=== PATIENT | male | born 1955 | race Caucasian/White ===

== ENCOUNTER 2016-03-27 13:41 | Outpatient (CLI) | payer MEDICAID | END 2016-03-27 13:42 | disposition home or self-care (01) | DX: R25.2 Cramp and spasm (principal) ==

== ENCOUNTER 2016-04-02 10:18 | Emergency (ER) | payer MEDICAID ==
[2016-04-02] MEDS ORDERED: KETOROLAC 60 MG/2 ML VIAL IM STA (12:11)
[2016-04-02] MEDS ORDERED: KETOROLAC 60 MG/2 ML VIAL ONE (12:21)
== END 2016-04-02 12:47 | disposition home or self-care (01) ==
DX: S46.911A Strain of unspecified muscle, fascia and tendon at shoulder and upper arm level, right arm, initial encounter (principal); X58.XXXA Exposure to other specified factors, initial encounter; E11.65 Type 2 diabetes mellitus with hyperglycemia; I10 Essential (primary) hypertension; K21.9 Gastro-esophageal reflux disease without esophagitis; F17.200 Nicotine dependence, unspecified, uncomplicated; Z79.4 Long term (current) use of insulin

== ENCOUNTER 2016-05-10 13:45 | Outpatient (CLI) | payer MEDICAID | END 2016-05-10 13:46 | DX: R19.01 Right upper quadrant abdominal swelling, mass and lump (principal) ==

== ENCOUNTER 2016-05-11 18:51 | Outpatient (CLI) | payer MEDICAID | END 2016-05-11 18:52 | disposition home or self-care (01) | DX: K76.9 Liver disease, unspecified (principal) ==

== ENCOUNTER 2016-05-13 09:34 | Outpatient (CLI) | payer MEDICAID ==
[2016-05-13] MEDS ORDERED: IOPAMIDOL-300 100 ML VIAL IVP ONE (10:27)
== END 2016-05-13 09:35 | disposition home or self-care (01) ==
DX: C18.3 Malignant neoplasm of hepatic flexure (principal); R59.0 Localized enlarged lymph nodes
CPT/HCPCS: 71260; 74177; Q9967

== ENCOUNTER 2016-05-22 13:45 | Outpatient (CLI) | payer MEDICAID | END 2016-05-22 13:46 | disposition home or self-care (01) | DX: Z51.5 Encounter for palliative care (principal); G89.3 Neoplasm related pain (acute) (chronic); C22.9 Malignant neoplasm of liver, not specified as primary or secondary; K59.00 Constipation, unspecified; R63.0 Anorexia; E11.65 Type 2 diabetes mellitus with hyperglycemia; R53.83 Other fatigue; F41.9 Anxiety disorder, unspecified; F42.9 Obsessive-compulsive disorder, unspecified; I73.9 Peripheral vascular disease, unspecified; G47.9 Sleep disorder, unspecified; R19.7 Diarrhea, unspecified; Z79.891 Long term (current) use of opiate analgesic; Z79.899 Other long term (current) drug therapy; Z87.891 Personal history of nicotine dependence ==

== ENCOUNTER 2016-05-26 15:20 | Outpatient (CLI) | payer MEDICAID | END 2016-05-26 15:21 | disposition critical access hospital (66) | DX: R11.2 Nausea with vomiting, unspecified (principal) | CPT/HCPCS: A0425; A0429 ==

== ENCOUNTER 2016-05-26 15:35 | Observation (INO) | payer MEDICAID ==
[2016-05-26] MEDS ORDERED: ONDANSETRON 4 MG/2 ML VIAL IVP STA (16:03)
[2016-05-26] MEDS ORDERED: SODIUM CHLORIDE 0.9% 1,000 ML IV ONE (16:03)
[2016-05-26] MEDS ORDERED: HYDROmorphone 1 MG/ML SYRINGE IVP STA (16:44)
[2016-05-26] MEDS ORDERED: HYDROmorphone 1 MG/ML SYRINGE ONE (17:04)
[2016-05-26] MEDS ORDERED: ONDANSETRON 4 MG/2 ML VIAL ONE (17:04)
[2016-05-26] MEDS ORDERED: IOPAMIDOL-300 100 ML VIAL IVP ONE (18:03)
[2016-05-26] MEDS ORDERED: ONDANSETRON 4 MG/2 ML VIAL IVP PRN (21:31)
[2016-05-26] MEDS ORDERED: SODIUM CHLORIDE FLUSH 0.9% 10 ML SYRINGE IVP PRN (21:31)
[2016-05-26] MEDS ORDERED: PROCHLORPERAZINE 10 MG/2 ML VIAL IVP PRN (21:31)
[2016-05-26] MEDS ORDERED: ONDANSETRON ODT 4 MG TABLET TL PRN (21:31)
[2016-05-26] MEDS ORDERED: DICLOFENAC SODIUM 2 GM TP PRN (21:34)
[2016-05-26] MEDS: SODIUM CHLORIDE 0.9% 1,000 ML IV SCH (22:50)
[2016-05-26] MEDS: SODIUM CHLORIDE FLUSH 0.9% 10 ML SYRINGE IVP SCH (22:50)
[2016-05-26] MEDS: MORPHINE 2 MG/ML SYRINGE IVP PRN (22:50)
[2016-05-26] MEDS: PANTOPRAZOLE 40 MG VIAL IVP SCH (22:50)
[2016-05-27] MEDS: MORPHINE 2 MG/ML SYRINGE IVP PRN ×2 (01:17→05:20)
[2016-05-27] MEDS: SODIUM CHLORIDE FLUSH 0.9% 10 ML SYRINGE IVP SCH (06:26)
[2016-05-27] MEDS: PANTOPRAZOLE 40 MG VIAL IVP SCH (06:26)
[2016-05-27] MEDS ORDERED: INSULIN ASPART 300 UNIT/3 ML PEN SUBQ SCH (08:00)
[2016-05-27] MEDS: SODIUM CHLORIDE 0.9% 1,000 ML IV SCH (08:29)
[2016-05-27] MEDS ORDERED: PROPRANOLOL 10 MG TABLET PO SCH (09:00)
[2016-05-27] MEDS ORDERED: POLYETHYLENE GLYCOL 3350 17 GM PACKET PO SCH (09:00)
[2016-05-27] MEDS ORDERED: INSULIN GLARGINE 300 UNIT/3 ML PEN SUBQ SCH (09:00)
[2016-05-27] MEDS ORDERED: LISINOPRIL 20 MG TABLET PO SCH (10:15)
== END 2016-05-27 13:31 | disposition home or self-care (01) ==
DX: R11.2 Nausea with vomiting, unspecified (principal); C18.9 Malignant neoplasm of colon, unspecified; C78.7 Secondary malignant neoplasm of liver and intrahepatic bile duct; I10 Essential (primary) hypertension; K59.03 Drug induced constipation; K52.1 Toxic gastroenteritis and colitis; T40.2X5A Adverse effect of other opioids, initial encounter; R59.9 Enlarged lymph nodes, unspecified; E11.65 Type 2 diabetes mellitus with hyperglycemia; E11.21 Type 2 diabetes mellitus with diabetic nephropathy; E11.40 Type 2 diabetes mellitus with diabetic neuropathy, unspecified; E11.319 Type 2 diabetes mellitus with unspecified diabetic retinopathy without macular edema; R93.6 Abnormal findings on diagnostic imaging of limbs; F17.210 Nicotine dependence, cigarettes, uncomplicated; F10.21 Alcohol dependence, in remission; Z79.891 Long term (current) use of opiate analgesic; Z79.4 Long term (current) use of insulin; Z79.899 Other long term (current) drug therapy; Z87.898 Personal history of other specified conditions; Z66 Do not resuscitate
CPT/HCPCS: 36415; 71020; 74177; 80048; 80053; 81003; 83036; 83605; 83690; 85025; 87040; 96361; 96374; 96375; 96376; 99284; 99285; A9270; G0378; J1170; J1815; Q0162; Q9967

== ENCOUNTER 2016-05-29 08:30 | Day surgery (SDC) | payer MEDICAID ==
[2016-05-29] MEDS ORDERED: ceFAZolin 2 GM/50 ML 50 ML IV ONE (08:34)
[2016-05-29] MEDS ORDERED: LACTATED RINGERS 1,000 ML IV ONE ×2 (08:45→11:22)
[2016-05-29] MEDS ORDERED: fentaNYL 100 MCG/2 ML VIAL IVP ONE (10:29)
[2016-05-29] MEDS ORDERED: MIDAZOLAM 2 MG/2 ML VIAL IVP ONE (10:29)
[2016-05-29] MEDS ORDERED: LIDOCAINE-MPF 2% 2 ML AMP SUBQ ONE (10:29)
[2016-05-29] MEDS ORDERED: PROPOFOL 200 MG/20 ML VIAL IVP ONE (10:29)
[2016-05-29] MEDS ORDERED: ONDANSETRON 4 MG/2 ML VIAL IVP ONE (10:29)
[2016-05-29] MEDS ORDERED: METOPROLOL 5 MG/5 ML VIAL IVP ONE (10:29)
[2016-05-29] MEDS ORDERED: DEXAMETHASONE 4 MG/ML VIAL IVP ONE (10:29)
[2016-05-29] MEDS ORDERED: SUCCINYLCHOLINE 200 MG/10 ML VIAL IVP ONE (10:29)
[2016-05-29] MEDS ORDERED: BUPIVACAINE 0.5% PF 30 ML VIAL SUBQ ONE ×2 (11:02)
[2016-05-29] MEDS ORDERED: ONDANSETRON 4 MG/2 ML VIAL ONE (13:55)
[2016-05-29] MEDS ORDERED: oxyCOD/ACETAMIN 5 MG/325 MG TABLET PO ONE (14:45)
[2016-05-29] MEDS ORDERED: HYDROcod/ACETAM 5/325 MG TABLET ONE (14:50)
== END 2016-05-29 08:31 | disposition home or self-care (01) ==
PROC: 0JH63XZ Insertion of Tunneled Vascular Access Device into Chest Subcutaneous Tissue and Fascia, Percutaneous Approach (ICD-10-PCS; principal; 2016-05-29 09:45)
DX: C18.9 Malignant neoplasm of colon, unspecified (principal); C78.7 Secondary malignant neoplasm of liver and intrahepatic bile duct; E11.9 Type 2 diabetes mellitus without complications; Z79.4 Long term (current) use of insulin; R03.0 Elevated blood-pressure reading, without diagnosis of hypertension; E66.9 Obesity, unspecified; F17.210 Nicotine dependence, cigarettes, uncomplicated; Z68.25 Body mass index [BMI] 25.0-25.9, adult
CPT/HCPCS: 36561; 71010; A9270; C1788; J0690; J7120

== ENCOUNTER 2016-06-02 13:30 | Outpatient (CLI) | payer MEDICAID | END 2016-06-02 13:31 | disposition home or self-care (01) | DX: Z51.5 Encounter for palliative care (principal); G89.3 Neoplasm related pain (acute) (chronic); K59.00 Constipation, unspecified; C22.9 Malignant neoplasm of liver, not specified as primary or secondary; R63.0 Anorexia; E11.65 Type 2 diabetes mellitus with hyperglycemia; G47.00 Insomnia, unspecified; F41.9 Anxiety disorder, unspecified; R53.83 Other fatigue; Z74.2 Need for assistance at home and no other household member able to render care; T38.3X6A Underdosing of insulin and oral hypoglycemic [antidiabetic] drugs, initial encounter; Z79.891 Long term (current) use of opiate analgesic; Z79.899 Other long term (current) drug therapy ==

== ENCOUNTER 2016-06-05 13:30 | Outpatient (CLI) | payer MEDICAID ==
--- NOTE | 2016-06-06 05:24 | CONSULTATION NOTE ---
DATE OF CONSULTATION: 06/05/2016 00:00:00 REQUESTING PROVIDER: Jose Angel Curry MD. TIME OF VISIT: 1330 to 1400. TOPIC: Followup palliative care consult. The patient is seen in the outpatient setting in attempts to address his current symptom management n eeds. EXAM LIMITATIONS: The patient is a poor historian. He does appear to have some memory deficits and di fficulty with medication adherence. BRIEF HISTORY OF PRESENT ILLNESS: This is a 61-year-old gentleman who has had a series of unfortunate events and recently diagnosed with adenocarcinoma with liver metastasis, a significantly enlarged li brenna. This liver mass does fill most of his abdomen from about mid line down to his hip joint. It is q uite tender to palpation and swollen. He has been only able to tolerate lying flat and this continues to be the case. I had set up a plan for him just to manage through the weekend. He had been taking h ydrocodone 2 tabs as best I can tell about 4-5 times in 24 hours. He reports he continued to have dif ficulty with episodes of vomiting, reports 6 total over the weekend, despite taking his ondansetron. He originally told me he took it as scheduled, which was 3 times a day and then contradicted himself and said he had taken it 4 or 5 times. In reviewing his intake, he has been able to manage the Ensure , has been taking sips of fluid, reports he has been taking his chocolate protein shake. Has had diff iculty tolerating solids with lots of burping, reflux and difficulty with severe dizziness when stand ing. He does report he has had several small soft stools. He reports he also has been taking senna tw ice a day and MiraLax as instructed. He has still not reinitiated his insulin. He reports his blood s ugar was 161 last night and 140 this a.m. Currently on his labs he was at 199. He did previous to thi s episode have uncontrolled diabetes and thus is concerned that this may become problematic as well m oving forward. Today, he reports his pain is still an 8/10. He managed to "get through the weekend" with the plan at we set up, but feels like his pain is still poorly controlled. He has just received morphine 2 mg IV with some relief. He does appear to be tolerating it without difficulty. He recalls that this is w hat he has received also with his different procedures. He feels like he did not tolerate the OXYCODO NE and has it listed as an ALLERGY. In the context of trying to review pain regimen for the patient, I am concerned as he has a bit of a "more is better" approach. His brother, Zack, I did enlist as far as trying to evaluate baseline safety and how best to set up a safe plan for him. The patient has met with the oncologist and will be moving forward today with chemotherapy and becaus e of his debilitated status and current nausea/vomiting, will get daily hydration, as well as a chanc e to monitor and titrate his symptom management meds. MEDICATION ALLERGIES: OXYCODONE. CURRENT MEDICATION LIST Again remains somewhat nebulous as far as what he is currently taking. 1. He has been instructed to take Miralax 17 grams b.i.d. 2. Hydrocodone 5/325 two tabs every 4 hours, not to exceed 8 tablets in 24 hours. 3. Propranolol 20 mg at bedtime. 4. Fenofibrate 160 mg at bedtime. 5. Prilosec 20 mg in the a.m. 6. Zofran oral ODT 4 mg q.8h. 7. Lisinopril 30 mg daily. 8. Senna 8.6 mg 2 tabs b.i.d. 9. Zolpidem 5 mg at bedtime. He is currently holding his insulin. 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 He curre ntly had his daughter assist him over the weekend. His sister, who is a nurse, has been trying to pro vide support but does not live nearby. The patient continues to want to have control over his current situation, but is having difficulty holding on and tracking information as far as medication adheren ce and certainly this presents concern. PERFORMANCE STATUS: The patient is currently quite limited by his pain. He is mostly bedbound. Even a t this point in time I would put him at a palliative care performance status at 40%. He is reclining in the recliner and did spend most of the time in bed over the weekend other than to ambulate out on the porch to smoke. REVIEW OF SYSTEMS ENT: Has a history of hearing problems, is having some what he describes as esophageal spasms and bur ping. CARDIOVASCULAR: Denies chest pain. RESPIRATORY: Shortness of breath with activity. GASTROINTESTINAL: As noted above. GENITOURINARY: No identified problems. MUSCULOSKELETAL: He reports overall weakness. He does have bilateral peripheral artery disease with p ain with walking. INTEGUMENTARY: He does have his port access with dressing in place. PSYCHIATRIC: Has long-term history of anxiety, difficulty with focusing, and short attention span, fe eling somewhat overwhelmed. ENDOCRINE: Type 2 diabetes, unclear how closely he is monitoring his blood sugars. He is currently no t on any insulin. HEMATOLOGIC/IMMUNOLOGIC: No recent infections. LABORATORY: His potassium is okay at 48, sodium 134, GFR 68, glucose 199, AST is 87, ALT 54, alkaline phosphate 225, LDH 362, total protein 7.5. His CEA was 130.1, his white count 7.4, hematocrit 38.4, hemoglobin 12.9. PHYSICAL EXAMINATION GENERAL: He does appear somewhat muñoz in color, fatigued. Is lying out on the recliner. EYES: With periorbital edema. ENT: Just a few teeth left. His mucous membranes are moist. NECK: Trachea is midline. RESPIRATORY: Breathing without any difficulty. CARDIOVASCULAR: His temperature is 36.9, blood pressure 150/71, respiratory rate 18, pulse at 95. ABDOMEN: Quite full with a liver mass noted in the right upper and lower quadrant. SKIN: Port-A-Cath dressing intact. EXTREMITIES: No lower extremity edema. PALLIATIVE CARE DISCUSSION: Who is present, myself, the patient, and his brother, Zack. The patien t remains feeling quite overwhelmed, difficulty with tracking. Is able to recall somewhat the convers ation as far as the plan with his oncologist. He does recognize he is going to be starting chemothera py, that this is just palliative in nature, and that he will hopefully be able to get his symptoms ma naged with some frequent monitoring over this next week including daily fluids. I did not revisit his advanced directives as he is getting ready for chemotherapy teaching. I did discuss with he and his brother, Zack, that someone will need to oversee his medication adherence and safety issues, parti cularly for prescribing narcotics and his antiemetics. IMPRESSION: This is a 61-year-old gentleman with the unfortunate diagnosis of adenocarcinoma of unkno wn origin with liver metastases. He will be starting his chemotherapy today. Currently has uncontroll ed pain, nausea and fatigue. He does present with high symptom burden and concern for medication leslie rivera. RECOMMENDATIONS/COUNSELING DONE 1. Pain of neoplastic origin, poorly controlled. Given the patient's past history with the opioids, w e will go ahead and initiate morphine 15 mg tabs. He is to take 1 tab. Did discuss with the brother a nd the patient versus scheduled dosing versus p.r.n. dosing. Brother's observation, which is probably quite accurate, if given instruction as needed that he will pop them somewhat indiscriminately, part icularly in his intermittent confusion. Agreement was made to schedule it 4 times a day and 1 dose in the evening. We will see if this improves his pain management over the hydrocodone and given his ins urance, it may take 24-48 hours to get the prescription. In the meantime, he will use the hydrocodone . At this point in time, we do feel like we have a stable sense of where his dosing should be. We sterling l transition him over to long-acting morphine if he tolerates it without difficulty. 2. Constipation. The patient does report he is taking his MiraLax twice a day, as well as his Senna 2 tabs b.i.d. I reiterated with both the patient and the brother the need to continue with the goal of soft regular stools. His bowels have been moving at this point in time. 3. Anorexia. It is unclear exactly what the patient took for his ondansetron dosing. He will be getti ng Compazine added to this. The patient is already dizzy and with some confusion, we will need to mon itor closely his tolerance of these medications for ongoing safety. He will be coming in daily so can check in with him on this. I did recommend he stay on his scheduled ondansetron and will add the Com pazine for nausea as needed and can evaluate ongoing if lorazepam is appropriate given concern for po lypharmacy and medication adherence. 4. Diabetes type 2, poorly controlled. Again, the patient remains somewhat vague. His blood sugars ar e running on the higher side; they are not too high. He will be getting a dose of Decadron. I suspect that will spike it up. We will need to monitor and come to some agreement as far as what might be mo st helpful, both in the short and intermediate. We will enlist the help of a tobacco educator. He previ ously had been on fairly high doses of insulin. 5. Insomnia. He reports he is sleeping well with the zolpidem. He has been advised to only take 1 tab let again, and for safety reasons to take that from his pain medications until we can evalu ate his tolerance. 6. Caregiving support. I did enlist the brother as far as safety regarding his opioid and medication management. They will go back to the pill bottles, as the medisets did cause him problems as he did n ot trust what he was taking, but also instructed his brother to just put out the 5 doses of the morph ine, so we do have a way to track how much he is taking in 24 hours and evaluate it accordingly. I di d ask them to log, though I suspect this will be somewhat overwhelming for him. Prescription was prov ided and hopefully will pick it up this afternoon so they can start that tonight. 7. Anorexia. The patient is able at this point in time per his report to get his protein drink and En sure down. He has been pushing fluids, though has not been able to tolerate solid foods. Does appear he is keeping up somewhat with some caloric intake. We will continue to evaluate this on a daily basi s as well. TIME SPENT: 30 minutes with greater than 50% of this done in counseling and coordination of care, amy luating the patient's current pain regimen, negotiating opioid safety and teaching with both his brot her and the patient, as well as anticipatory guidance. JOB #: [id number] EXT JOB #:[id number]
== END 2016-06-05 13:31 | disposition home or self-care (01) ==
LOC: PC 13:30
PROVIDERS: ATTEND Nurse Practitioner Adult Health
DX: Z51.5 Encounter for palliative care (principal); G89.3 Neoplasm related pain (acute) (chronic); C78.7 Secondary malignant neoplasm of liver and intrahepatic bile duct; K59.00 Constipation, unspecified; R63.0 Anorexia; E11.65 Type 2 diabetes mellitus with hyperglycemia; G47.00 Insomnia, unspecified; R11.2 Nausea with vomiting, unspecified; F17.200 Nicotine dependence, unspecified, uncomplicated; R06.09 Other forms of dyspnea; R53.1 Weakness; I73.9 Peripheral vascular disease, unspecified; Z95.828 Presence of other vascular implants and grafts; F41.9 Anxiety disorder, unspecified; R42 Dizziness and giddiness; R41.0 Disorientation, unspecified
CPT/HCPCS: 99214

== ENCOUNTER 2016-06-06 15:06 | Outpatient (CLI) | payer MEDICAID | END 2016-06-06 15:07 | disposition home or self-care (01) | DX: Z51.5 Encounter for palliative care (principal); G89.3 Neoplasm related pain (acute) (chronic); K59.00 Constipation, unspecified; R11.2 Nausea with vomiting, unspecified; R63.0 Anorexia; E11.65 Type 2 diabetes mellitus with hyperglycemia; Z79.4 Long term (current) use of insulin; Z79.891 Long term (current) use of opiate analgesic; K21.9 Gastro-esophageal reflux disease without esophagitis; C80.1 Malignant (primary) neoplasm, unspecified; C78.7 Secondary malignant neoplasm of liver and intrahepatic bile duct; Z79.899 Other long term (current) drug therapy; R10.9 Unspecified abdominal pain; I10 Essential (primary) hypertension; R53.83 Other fatigue; F17.200 Nicotine dependence, unspecified, uncomplicated; F06.4 Anxiety disorder due to known physiological condition ==

== ENCOUNTER 2016-06-12 12:26 | Outpatient (CLI) | payer MEDICAID | END 2016-06-12 12:27 | disposition home or self-care (01) | DX: Z51.5 Encounter for palliative care (principal); G89.3 Neoplasm related pain (acute) (chronic); C18.9 Malignant neoplasm of colon, unspecified; C78.7 Secondary malignant neoplasm of liver and intrahepatic bile duct; K59.00 Constipation, unspecified; R11.2 Nausea with vomiting, unspecified; E46 Unspecified protein-calorie malnutrition; F41.9 Anxiety disorder, unspecified; R19.7 Diarrhea, unspecified; Z79.891 Long term (current) use of opiate analgesic; R42 Dizziness and giddiness; Z95.828 Presence of other vascular implants and grafts; R41.3 Other amnesia; R53.1 Weakness; E11.9 Type 2 diabetes mellitus without complications; Z91.14 Patient's other noncompliance with medication regimen ==

== ENCOUNTER 2016-06-21 13:26 | Outpatient (CLI) | payer MEDICAID ==
--- NOTE | 2016-06-22 06:22 | CONSULTATION NOTE ---
DATE OF CONSULTATION: 06/21/2016 00:00:00 REQUESTING PROVIDER: Jose Angel Curry MD. TIME OF VISIT: 13:45 to 14:45. TOPIC: Followup palliative care consult. EXAM LIMITATIONS: The patient remains a very difficult historian. His brother, Zack, is attempting to help manage his care and medications at home. BRIEF HISTORY OF PRESENT ILLNESS: This is a 61-year-old gentleman with stage IV adenocarcinoma with l iver metastasis, most likely noted to be colon in origin. He has started FOLFOX6 therapy, has had bin e increased difficulty with nausea, vomiting and diarrhea. Again, given the severity of his illness f urther workup is on hold. He did have some decrease in his gastric outlet obstructions for a couple w eeks, but these do appear to have recurred again or it also could be attributed to his increased side effects of chemotherapy. The patient presents today with distress. He "took a red pill last night" when he had a panic attack with increased pain and sleeping poorly. He said then he had "mass diarrhea and vomiting." In trying to define what mass diarrhea was he reported 3 episodes of diarrhea and some dry heaves and small caroline unt of emesis. He reports he has been bedridden x2 days because of the pain. It is unclear when we ar e looking at his log that he is taking ondansetron on a regular basis, and occasional Compazine. He i s using about 4-5 of the MS 15 mg, though does appear to have some difficulty figuring out when to ta ke those. His brother, Zack, has attempted to monitor and continue to oversee his medication manag ement. They are using [employer] for assistance. The patient still has some difficulty with adherence a nd memory issues. The other thing he has had very poor intake and he has not been tracking his fluids . Says he has been drinking small sips of tea, water, on his food log though there is probably less t la 500 calories total. He reports though sometimes he forgets to write things down. He is very fearf ul of constipation. His abdomen does appear quite distended, had been a little less taught last exam. Can still palpate the liver borders as filling most of his right abdominal space. He does appear bin ewhat flushed and uncomfortable at the time of our visit and easily overwhelmed with the information. MEDICATION ALLERGIES: OXYCODONE. MEDICATION LIST: 1. Miralax 17 grams is on hold for diarrhea. 2. Morphine 15 mg 1 tab up to 6 times a day. 3. Propranolol 20 mg at bedtime. 4. Fenofibrate 160 mg at bedtime. 5. Prilosec 20 mg b.i.d.. 6. Zofran 4 mg ODT q.8h. p.r.n. He has been using about 2 times a day. 7. Lisinopril 30 mg daily. 8. Senna 8.6 mg. 2. tabs b.i.d., this is on hold. 9. Zolpidem 5 mg at bedtime, may repeat x1. 10. Compazine 10 mg q.6h. p.r.n. breakthrough nausea. Currently his insulin is on hold. BRIEF SOCIAL HISTORY: The patient lives with his brother. 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 His brother, Zack, has been trying to assist with medications, though is not helping with personal car e. He has had some assistance from his sister and daughter, but is pretty much on his own to meet per subha care needs. We did revisit his conversation with the director social service about possibly hiring some a ssistance, particularly since he gets quite anxious and over-wrought at bedtime and at night. PERFORMANCE STATUS: I would put him at a palliative care performance status of 40%. He is spending ag ain most of his time in bed or in the recliner. He had improved his functional status for a short per iod of time, but seems to be having difficulty with side effects of his chemotherapy. REVIEW OF SYSTEMS: This is somewhat convoluted as far as the patient's ability to recall and consiste ncy in reporting. ENT: He does have mild hearing loss. Denies difficulty with swallowing. CARDIOVASCULAR: Denies chest pain. RESPIRATORY: Some breathlessness with activity, denies at time of visit. GASTROINTESTINAL: Reports he has had diarrhea, but is very fearful of constipation and has been actua lly allowing his bowels to be fairly loose. He does have poor appetite and early satiety, is complain ing of his mouth being more uncomfortable and sore. He is still taking less than one Ensure a day. GENITOURINARY: He denies problems. MUSCULOSKELETAL: Overall weakness and deconditioning. INTEGUMENTARY: He has a Port-A-Cath. NEUROLOGIC: Reports dizziness and memory problems. PSYCHIATRIC: Reports escalating anxiety and panic attacks, is using his lorazepam at nighttime to man age this. ENDOCRINE: He reports his blood sugar this morning was 165, we still continue to hold his insulin. He has an appointment with Beverly Fernandez on Sunday. Expect this will be somewhat overwhelming. HEMATOLOGIC/IMMUNOLOGIC: He is getting an iron transfusion today, does appear to be tolerating that f airly well. PHYSICAL EXAMINATION: GENERAL: He is somewhat flushed and appears quite fatigued, difficulty concentrating on the conversat ion, is having increased pain behaviors. EYES with periorbital edema. ENT: His mucous membranes are quite red and irritated. No open sores. He is experiencing some mucosit is, is not doing rinses at this time. He is mostly edentulous. VITAL SIGNS: Pulse is 92, blood pressure 156/68. ABDOMEN: As noted above. SKIN: Color pale. EXTREMITIES: No lower extremity edema. He is able to move all extremities without problems. PALLIATIVE CARE DISCUSSION: Who is present, myself, the patient, and his brother, Zack. The patien brennen continues to feel quite overwhelmed with his current situation. He reports he is at "base camp," is starting to get his boots on the ground and feels like he is finally improving somewhat, though, giv en his expression of his symptoms, it does appear actually that I am concerned that we are making any progress. The oncologist is hoping that he will get some response, but still a little too soon to se e. There are significant issues with medication adherence and follow through on plan of care. IMPRESSION: This is a 61-year-old gentleman with stage IV adenocarcinoma with liver metastasis who ceron s very high symptom burden. His pain is poorly controlled and escalating again. We had made some head way, but currently worsening. It is unclear if this is related to side effects of chemotherapy or wor sening disease. RECOMMENDATIONS/COUNSELING DONE: 1. Pain of neoplastic origin remains somewhat poorly controlled. He is reporting 10/10 pain, particul dmitriy at night. Had been doing okay with a short-acting morphine previous to this last week. Had decid ed though that because of the patient's medication adherence to wait another few days before being tr ansitioned to [facility] [place]. His brother was not available at the last visit to the clinic, so did review , specifically with Zack and Joseph my concerns regarding opioid safety. They are going to initiate MS Contin 30 mg b.i.d. Counseling regarding breakthrough pain medication use and instruction to keep just a few pills at bedside of the morphine IR 15 mg tabs, can use up to 4 tabs/24 hours for breakth rough pain, to improve safety. Both are in agreement for this. 2. Diarrhea. The patient does per brother's report, have some Lomotil at home. Currently, he even tho ugh he had diarrhea last night, perceives he has "constipation today." Did write out again if no renetta l movement in 24 hours to reinitiate the MiraLax 17 grams daily and if no bowel movement in 48 hours initiate the Senna back to b.i.d. but currently hold for diarrhea and if no improvement certainly use the Lomotil. He does have a propensity for constipation and is very fearful. 3. Vomiting and nausea. He is taking the ondansetron in response to episodes of vomiting, nausea. He has had ongoing low-grade nausea. We did discuss in trying to get on top of his fluid and food intake to schedule the ondansetron for 3 times a day through this next Sunday and use the Compazine for [facility] nausea. This was all written down and reviewed with both the patient and the brother. Did a gain discuss the concern regarding dehydration and the need to push Ensure, that at the minimum he ne eds to be taking 2 and possibly up to 4 a day. He is to continue to watch his blood sugars though giv en his diabetes. He currently is off insulin. 4. Malnutrition. The patient, despite instructions last time and recommendations to use electrolyte d rinks, does continue to have minimal intake. Again, reinforced the need, if he is going to be getting chemotherapy to push fluids and increase his calories. 5. Anxiety. The patient is actually fairly fearful and very anxious. He continues to have high sympto m burden and side effects of the chemotherapy, does recognize he has a serious illness and remains in a place of concern as far as prognosis. TIME SPENT: 60 minutes with greater than 50% of this done in writing out instructions regarding sympt om management, reviewing with both the patient and brother for management, counseling regarding opioi d safety and anticipatory guidance. JOB #: [id number] EXT JOB #:[id number]
== END 2016-06-21 13:27 | disposition home or self-care (01) ==
LOC: PC 13:26
PROVIDERS: ATTEND Nurse Practitioner Adult Health
DX: Z51.5 Encounter for palliative care (principal); G89.3 Neoplasm related pain (acute) (chronic); C78.7 Secondary malignant neoplasm of liver and intrahepatic bile duct; R19.7 Diarrhea, unspecified; R11.2 Nausea with vomiting, unspecified; E46 Unspecified protein-calorie malnutrition; F41.9 Anxiety disorder, unspecified; Z79.899 Other long term (current) drug therapy; Z79.891 Long term (current) use of opiate analgesic; R68.81 Early satiety; R53.83 Other fatigue; Z95.828 Presence of other vascular implants and grafts; R42 Dizziness and giddiness; F43.0 Acute stress reaction; K12.30 Oral mucositis (ulcerative), unspecified; Z91.14 Patient's other noncompliance with medication regimen
CPT/HCPCS: 99215

== ENCOUNTER 2016-06-28 12:45 | Outpatient (CLI) | payer MEDICAID ==
--- NOTE | 2016-06-29 05:26 | CONSULTATION NOTE ---
DATE OF CONSULTATION: 06/28/2016 00:00:00 TIME OF VISIT: [id number]. REQUESTING PROVIDER: Dr. Jose Angel Curry. TOPIC: Followup palliative care consult. EXAM LIMITATIONS: The patient remains a very difficult historian. I did check in briefly with his bro ther, Zack. 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 He has started FOLFOX therapy and is scheduled to have his second round on Sunday. He has had ongoing high symptom burden, which includes abdominal p ain 8-10/15. It is actually a 0 at rest when he is lying flat out. Exacerbating factors include bendin g, sitting or putting any kind of pressure on his right upper quadrant or stomach. At that point in t rick, it is fairly acute. Mostly, again, it is related to his liver metastases and located in the righ t upper quadrant area. His abdomen still remains tender to palpation and still has extensive fullness in his abdomen. I had initiated MS Contin 30 mg b.i.d. at our last visit on 06/21. He does report be tter steady state. He has been monitored and taken the MS 15 mg for breakthrough pain, but did appear to overdo it on the weekend resulting in some falls and increased confusion. He is aware of this. Hi s brother, Zack, is aware as well. The patient does tend to get anxious and over medicate, so they have been working with him to try and find a balance there for him. The diarrhea has since resolved and he has been using the MiraLax with frequent formed stools, so this is not adding to his discomfor t and he has used this medication appropriately. The nausea has improved on the scheduled ondansetron 3 times a day as well. He has only had one episode of vomiting and this is when he tried eating a sa ResQUwich. He has been using soups, Ensure, V8, but does appear to be getting less than his caloric need s. He has lost almost 20 pounds over the last month. He still remains quite anxious and this is exace rbated by his continued decline. He is recognizing that he is in a tenuous situation. Continues to re main hopeful that we will get a response from his treatment, though he does present today with decrea sed functional status and increased difficulty with concentration and sedation and continued weight l oss and high symptom burden. He did establish with [facility] and has felt a good connec tion for him. MEDICATION ALLERGIES: OXYCODONE. MEDICATION LIST 1. Miralax 17 grams p.r.n. constipation. 2. Morphine 30 mg extended release b.i.d. 3. Morphine 15 mg 1 tab up to 4 times a day for breakthrough pain. 4. Propranolol 20 mg at bedtime. 5. Fenofibrate 160 mg at bedtime. 6. Prilosec 20 mg b.i.d. 7. Zofran 4 mg scheduled q.8h. 8. Lisinopril 30 mg daily. 9. Senna 8.6 mg p.r.n. 10. Zolpidem 5 mg at bedtime, may repeat x1. 11. Compazine 10 mg q.6h. p.r.n. nausea. 12. Currently his insulin is on hold. BRIEF SOCIAL HISTORY: The patient lives with his brother who helps providing oversight, though he is not providing personal care. 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 He has not hired any assistance, though does remember the conversation with the social worke r. He does get quite anxious and overwrought at bedtime. He does have some intermittent anxiety, thou gh intellectually can talk about his decline. PERFORMANCE STATUS: I would put him at a palliative care performance status at 40%. He is spending mo st of his time in bed or in the recliner. This is related to exacerbation of pain with sitting or sta nding, also increased pressure on his stomach. He is starting to recover from the side effects of his chemotherapy, but remains quite weak. REVIEW OF SYSTEMS Again, this remains somewhat suspect as far as the patient's ability to recall and consistency in rep orting. ENT: Mild hearing loss. Denies difficulty swallowing. CARDIOVASCULAR: Denies chest pain. RESPIRATORY: Shortness of breath with activity. GASTROINTESTINAL: Currently has had formed regular stools over the weekend. He continues with poor ap petite and early satiety. He reports his mouth is somewhat improved. He is trying to increase his angel ories and fluids, but is only doing about 1 Ensure a day. GENITOURINARY: Denies problems. MUSCULOSKELETAL: He has had falls. This is due to weakness, balance, and probably over medication. INTEGUMENTARY: He has a Port-A-Cath. NEUROLOGIC: Reports dizziness with standing and increasing memory problems. PSYCHIATRIC: He does have quite a bit of depression and anxiety. He is using the lorazepam at night t rick for management of this. ENDOCRINE: Is currently off his insulin. HEMATOLOGIC/IMMUNOLOGIC: He is getting iron transfusion today. PHYSICAL EXAMINATION GENERAL APPEARANCE: The patient does appear quite fatigued. He does have temporal wasting, as well as upper and lower extremity wasting. EYES: Periorbital edema. ENT: Mucous membranes are slightly reddened, no open areas. He is edentulous. VITAL SIGNS: His pulse is 98, blood pressure 150/79. ABDOMEN: Somewhat taught, hepatomegaly. Bowel tones are positive. SKIN: Color pale. EXTREMITIES: No lower extremity edema. The patient was lying on the recliner on exam. PALLIATIVE CARE DISCUSSION: Who is present, myself and the patient. The patient does report he is set tling in somewhat to this, starting to intellectually come to some acceptance, though does report inc reasing anxiety, is aware that he does use his medications at times for coping. He currently feels li ke he has adequate social support, though it does appear with his functional decline, he may need to enlist some more personal care and support. We did tentatively form what might be some options or sup port he might need in the future, particularly if he continues to decline. He is of course hopeful fo r response from his chemotherapy and we all agreed we are hoping for the best, but also need to tej it what that might look like if he continues to do poorly. He reports he is not fearful, though this again is on an intellectual level, but also reports has difficulty coping at times. IMPRESSION: The patient is a 61-year-old gentleman with stage IV advanced adenocarcinoma with liver m etastases with very high symptom burden. His pain control is somewhat improved, though complicated in finding a balance of sedation and relief. He has continued to smoke and has poor intake with ongoing weight loss. RECOMMENDATIONS/COUNSELING DONE 1. Pain of neoplastic origin, some improvement in control. He again reports fairly severe pain, but i s willing to continue his current regimen. Counseling done weighing benefits and burdens and opioid s afety. Did encourage him, given his high propensity for fall risk, to limit his breakthrough pain med ication and see about 2 a day if possible, knowing that we do not want to withhold, but we want him t o be safe. 2. Falls without injury. The patient does have a walker at home. He has been instructed to use this f or balance and off loading. He is in agreement with this. 3. Anorexia. Did discuss the range of options. The cannabis is not helping and he has not been using it consistently. I will go ahead and initiate at least for over the weekend, Decadron 4 mg daily. He is instructed to take food with this. We also reviewed that given his poor nutritional status, he coats s need to bump up his Ensure or protein shakes to 4 times a day or else he will continue to experienc e his current issues with dehydration and poor energy, but recognizing also this is multifactorial in origin including disease burden is most likely adding to this. 4. Diarrhea, currently controlled. He is using MiraLax appropriately. He was experiencing some consti pation. 5. Vomiting and nausea. The patient scheduled ondansetron 3 times a day, has improved management of h is nausea and vomiting. His poor choice of food is what exacerbated his one episode over the last few days. 6. Anxiety. This is multifactorial in origin including his past history and coping style. I did provi de psychosocial support and counseling in normalizing his feelings of grief and loss and fear moving forward. 7. Advanced care planning. I did venture into some what ifs regarding the patient's continued decline and concern for poor response to treatments as far as goals of care. We will continue on the same fo cus per his wishes. We do have a visit scheduled for Sunday. TIME SPENT: 30 minutes with greater than 50% of this done with counseling and coordination of care, r ruddyiewing concerns regarding safety and opioid use, as well as high symptom burden and anticipatory gu idance. JOB #: [id number] EXT JOB #:[id number]
== END 2016-06-28 12:46 | disposition home or self-care (01) ==
LOC: PC 12:45
PROVIDERS: ATTEND Nurse Practitioner Adult Health
DX: Z51.5 Encounter for palliative care (principal); G89.3 Neoplasm related pain (acute) (chronic); R29.6 Repeated falls; R63.0 Anorexia; R19.7 Diarrhea, unspecified; R11.2 Nausea with vomiting, unspecified; F41.9 Anxiety disorder, unspecified; C78.7 Secondary malignant neoplasm of liver and intrahepatic bile duct; R10.11 Right upper quadrant pain; Z79.891 Long term (current) use of opiate analgesic; E11.9 Type 2 diabetes mellitus without complications; R53.1 Weakness; R06.09 Other forms of dyspnea; R68.81 Early satiety; Z95.828 Presence of other vascular implants and grafts; F32.9 Major depressive disorder, single episode, unspecified; F17.200 Nicotine dependence, unspecified, uncomplicated
CPT/HCPCS: 99214

== ENCOUNTER 2016-07-04 14:09 | Outpatient (CLI) | payer MEDICAID ==
--- NOTE | 2016-07-05 05:39 | CONSULTATION NOTE ---
DATE OF CONSULTATION: 07/04/2016 00:00:00 REQUESTING PROVIDER: Jose Angel Curry MD, PhD TIME OF VISIT: 4200-8242 hours. TOPIC: Followup palliative care consult. BRIEF HISTORY OF PRESENT ILLNESS: This is a 61-year-old gentleman with stage IV adenocarcinoma with liver metastasis, most likely noted to be colon in origin. He has started FOLFOX therapy and is having his second round of chemotherapy today. He continues to have ongoing high symptom burden, which includes abdominal pain at an 8/10. He did have an exacerbation of his pain yesterday with some mild constipation and an "epic" episode of nausea and vomiting of which he reports is mostly undigested food over the last 2 days. His abdomen still remains rounded and taut, less swelling to the abdomen, but can still palpate the liver edges that go down into almost his full right upper and lower quadrant. It is quite tender to palpation. He is on MS Contin 30 mg b.i.d. and has been taking his MS immediate release 15 mg. He can have it up to 4 times a day but, given his propensity for sedation and confusion on it, he is trying to limit it to twice a day. His newest symptoms have been hiccups. He has had some intractable hiccups over the last 24-48 hours. These are not attributed to any kind of activity or positioning. They are more problematic than they are painful. Unfortunately his CEA has continued to escalate, and it is 274.5. He does, though, feel like he has had some relief, as far as pressure in his abdomen. The new symptom he presents today is that he has been greater than a month having difficulty starting his urinary stream, difficulty emptying his bladder, and urgency. It is most distressing about 4 o'clock in the afternoon. He reports in the morning it actually discourages him from drinking fluids because it is quite painful when he cannot empty his bladder. He denies any pain or burning with this in the urethra. His white count is within normal range. I suspect he is having some retention symptoms. He is quite desperate to have this addressed. His blood pressures have been running in an adequate range. I will go ahead and initiate tamsulosin. SYMPTOM BURDEN: Pain as noted above. He continues to have fatigue, feels like he probably overdid it this weekend. He did have family visiting, had a barbecue several times. Unfortunately he, himself, is involved in the cooking and felt like he probably was up too much, given his poor tolerance for activity. He reports he has felt stable with a cane and has not needed to use the walker. He has had no further falls, he has been not been able to tolerate bathing other than for short "army bath". His appetite remains poor. His intake does reflect better on his log, though it is still less than his caloric intake needs. He denies shortness of breath and continues to smoke. He does have severe significant anxiety, does admit to some depression, and reports his quality of life is tolerable at this point in time. MEDICATION ALLERGIES: OXYCODONE. MEDICATION LIST 1. Miralax 17 grams p.r.n. constipation. 2. Morphine 30 mg extended release b.i.d. 3. Morphine 15 mg of 1 tab up to 4 times a day for breakthrough pain. 4. Propranolol 20 mg at bedtime. 5. Fenofibrate 160 mg at bedtime. 6. Prilosec 20 mg b.i.d. 7. Zofran 4 mg scheduled q.8 hours around the clock. 8. Lisinopril 30 mg daily. 9. Senna 8.6 p.r.n. 10. Zolpidem 5 mg at bedtime, may repeat x1. 11. Lorazepam 0.5 mg 1 q.6 hours p.r.n. anxiety. 12. Compazine 10 mg q.6 hours p.r.n. nausea. 13. Currently his insulin is on hold. 14. Decadron 4 mg daily BRIEF SOCIAL HISTORY: The patient continues to have multiple family members and friends attempting to provide support, though they are not providing physical hands-on care. He does have his brother, Zack, who is helping provide oversight, as far as his medications and logging his current intake, as well as distribution of his medications. He does get quite anxious as bedtime comes around, and presents with anxiety. PERFORMANCE STATUS: I would still put him only at a palliative care performance status of 40%. He is spending most of his time in bed or in the recliner, though has spent more time up over the weekend with his friends and family around. His pain does get exacerbated with sitting and standing. REVIEW OF SYSTEMS Again, remains somewhat suspect of patient's ability to recall and consistency in reporting. HEENT: Mild hearing loss. Denies difficulty swallowing. Denies any mouth discomfort. CARDIOVASCULAR: Denies chest pain; GERD symptoms are improved. RESPIRATORY: Shortness of breath with any activity. GASTROINTESTINAL: He was going fairly regularly daily with just the MiraLax. Unfortunately, he skipped about a 24-hour period, and this all resulted in some severe vomiting and increased abdominal pain; after his bowels moved, he reports his pain was improved. GENITOURINARY: As noted above, though previously had not complained of any problems. MUSCULOSKELETAL: No further falls, is trying to get around his house with a cane ; denies need for personal care. INTEGUMENTARY: He has a Port-A-Cath; face is somewhat flushed. NEUROLOGIC: He reports dizziness better, does have ongoing memory problems. PSYCHIATRIC: He has high anxiety and depression; he is using lorazepam at night with good results. ENDOCRINE: He is currently off his insulin. He reports blood sugar of 173 this morning, his labs show 182, he attributes with his increase in ice cream sandwiches. HEMATOLOGIC/IMMUNOLOGIC: He has been getting iron transfusions. PHYSICAL EXAMINATION GENERAL APPEARANCE: He does appear quite fatigued. He is having some increased temporal wasting and upper and lower extremity. His weight today is 166.4 and continues to decrease. HEENT: Eyes with periorbital edema. ENT: Mucous membranes are slightly reddened , no open areas. He is edentulous. VITAL SIGNS: Pulse is 90, blood pressure 123/73. RESPIRATORY: lungs diminished throughout ABDOMEN: As noted above, color pale, face flushed. EXTREMITIES: No lower extremity edema. He was able to get from sit to stand with some assistance and ambulate a short distance. PALLIATIVE CARE DISCUSSION/WHO IS PRESENT: Myself and the patient. The patient is quite anxious to know "if this is working" or not. He does understand he needs to await yet another cycle to see if he has any response to this. His CEA is elevated. He continues with high symptom burden related to his disease with pain, intermittent constipation, now with urinary retention, and continued difficulty meeting his caloric needs secondary to early satiety and nausea and vomiting. He does appear to understand the seriousness of his illness. I suspect he is recognizing intellectually that he has had only minimal improvement but remains quite hopeful to continue to push forward, but continues to struggle emotionally with the implications regarding his demise. Currently his goals are to continue with the chemotherapy, again hoping for the best. He does report difficulty coping, though, at times. IMPRESSION: This is a 61-year-old gentleman with stage IV advanced adenocarcinoma with liver metastasis, with continued high symptom burden. His pain control is acceptable at this point in time. He does continue to have poor intake and ongoing weight loss, and now elevated CEA. RECOMMENDATIONS/COUNSELING DONE 1. Pain of neoplastic origin. He is satisfied with current control, though he rates his pain fairly high. He is more alert and more interactive; this is his goal as far as balance for his regimen. He does have the morphine for breakthrough and rescue pain, and he uses the lorazepam for his anxiety as a supplement. 2. Deconditioning. The patient has been using a cane. I did ask him, though, given his likelihood to be more weak during chemotherapy, to use his walker over the next few days; he did agree. 3. Anorexia. He has started the Decadron 4 mg daily. He does feel like this has improved, somewhat, his energy and willingness to eat. He has not been able to meet his goal of Ensure protein shakes up to 4 times a day, more often 2. He continues to struggle with dehydration and poor energy. 4. Urinary retention. This is most likely multifactorial in origin, including opioid use. He will trial some tamsulosin 0.4 mg at bedtime to see if this improves. 5. Hiccups, most likely related to disease process. Currently he is managing with just some folk remedies. I am hesitant to add yet another medication that is sedating, but it could be treated with baclofen if it becomes recalcitrant. 6. Constipation. He is using his MiraLax daily. We did discuss that if he had no BM in 24 hours, he is to double his MiraLax; we had that at 48 hours before. 7. Nausea and vomiting. He does have his scheduled ondansetron 3 times a day. This had been providing some improvement. He still describes emesis that is indicative of obstructive symptoms last night. 8. Anxiety. Again this is multifactorial in origin attributed to his past history and coping style, counseling for normalizing feelings of grief and loss and fear of moving forward. 9. Advanced care planning. Given the patient's continued high symptom burden, functional decline, and rising CEA, we will revisit this at our next scheduled visit, which will be next . Time spent 45 minutes, with greater than 50% of this done in counseling and coordination of care, reviewing a new symptom of urinary retention, hiccoughs, pain management, anxiety, and anticipatory guidance. JOB #: [id number] [facility] JOB #:[id number] [facility]
== END 2016-07-04 14:10 | disposition home or self-care (01) ==
LOC: PC 14:09
PROVIDERS: ATTEND Nurse Practitioner Adult Health
DX: Z51.5 Encounter for palliative care (principal); G89.3 Neoplasm related pain (acute) (chronic); C78.7 Secondary malignant neoplasm of liver and intrahepatic bile duct; R63.0 Anorexia; R33.8 Other retention of urine; R06.6 Hiccough; K59.00 Constipation, unspecified; R11.2 Nausea with vomiting, unspecified; F41.9 Anxiety disorder, unspecified; Z79.891 Long term (current) use of opiate analgesic; Z79.899 Other long term (current) drug therapy; R10.9 Unspecified abdominal pain; R97.0 Elevated carcinoembryonic antigen [CEA]; F17.200 Nicotine dependence, unspecified, uncomplicated; F32.9 Major depressive disorder, single episode, unspecified; E11.9 Type 2 diabetes mellitus without complications; K21.9 Gastro-esophageal reflux disease without esophagitis; Z95.828 Presence of other vascular implants and grafts; Z91.81 History of falling; R68.81 Early satiety
CPT/HCPCS: 99215

== ENCOUNTER 2016-07-17 12:51 | Outpatient (CLI) | payer MEDICAID | END 2016-07-17 12:52 | disposition home or self-care (01) | LOC: PC 12:51 | PROVIDERS: ATTEND Nurse Practitioner Adult Health | DX: Z53.9 Procedure and treatment not carried out, unspecified reason (principal) ==

== ENCOUNTER 2016-07-20 21:24 | Outpatient (CLI) | payer MEDICAID | END 2016-07-20 21:25 | disposition critical access hospital (66) | LOC: EMS 21:24 | PROVIDERS: ATTEND Surgery | DX: R07.9 Chest pain, unspecified (principal) | CPT/HCPCS: A0425; A0427 ==

== ENCOUNTER 2016-07-20 21:37 | Emergency (ER) | payer MEDICAID ==
--- NOTE | 2016-07-20 21:55 | ED Physician Documentation ---
PD HPI CHEST PAIN - Stated complaint Stated Complaint: CP/SOA - Chief complaint Chief Complaint: Cardiac - History obtained from History obtained from: Patient - History of Present Illness Timing - onset: Enter time (14:00) Timing - onset during: Rest Timing - details: Abrupt onset, Waxing and waning Pain level now: 4 Quality: Pain Location: Substernal Radiation: Other (does not radiate) Improved by: Nothing Worsened by: Other (no apparent exacerbating factors) Associated symptoms: Shortness of air, Nausea, Vomiting - Additional information Additional information: patient has adenocarcenoma with liver metastases. 2 PM today had sudden onset of chest pain and dyspnea, family called 911 approximately 9 PM due to ongoing/ worsening chest pain. FSBS 255 (in field by medics). Given IV zofran 4mg en route by medics. Review of Systems Constitutional: denies: Fever, Chills, Sweats Cardiac: reports: Chest pain / pressure. denies: Palpitations Respiratory: reports: Dyspnea GI: reports: Abdominal Pain, Nausea, Vomiting Neurologic: reports: Generalized weakness. denies: Focal weakness, Numbness PD PAST MEDICAL HISTORY - Past Medical History Past Medical History: Yes Cardiovascular: Hypertension Respiratory: None Neuro: None Endocrine/Autoimmune: Type 2 diabetes GI: GERD : None HEENT: None Psych: Anxiety, Obsessive compulsive disorder Musculoskeletal: Osteoarthritis Derm: None Other Past Medical History: Colon CA with Mets - Past Surgical History Past Surgical History: Yes General: Appendectomy, Bowel surgery HEENT: Tonsil/Adenoidectomy - Present Medications Home Medications: Ambulatory Orders Medication Instructions Recorded Confirmed Insulin Glargine [Lantus] 75 units SQ DAILY 01/22/14 07/17/16 Fenofibrate [Lofibra] 160 mg PO DAILY 01/23/14 07/20/16 Lisinopril [Zestril] 30 mg PO DAILY 01/23/14 07/20/16 Diclofenac Sodium [Voltaren] 2 gm TP Q6HR PRN #1 gel..gram. 04/02/16 07/17/16 Sennosides [Senna] 2 tab PO BID 05/24/16 07/17/16 Diphenoxylate HCl/Atropine 1 tab PO Q6H PRN 05/27/16 07/17/16 [Diphenoxylate-Atrop 2.5-0.025] Ondansetron Odt [Zofran Odt] 4 mg TL Q8H PRN #30 tablet 05/27/16 07/17/16 Propranolol HCl 20 mg PO BID 05/27/16 07/20/16 Insulin Regular, Human [Humulin R] 10 unit SQ TID 05/29/16 07/17/16 Zolpidem [Ambien] 2 tab PO HS PRN 06/05/16 07/20/16 Morphine Sulfate [Ms Contin] 30 mg PO BID 06/07/16 07/20/16 Ondansetron [Ondansetron Odt] 8 mg PO Q8H PRN 06/07/16 07/20/16 Omeprazole [PriLOSEC] 20 mg PO BID 06/12/16 07/20/16 Morphine Ir [Ms Ir] 15 mg PO Q6H PRN 06/23/16 07/20/16 Tamsulosin [Flomax] 0.4 mg PO DAILY 07/04/16 07/17/16 Dexamethasone [Decadron] 4 mg PO DAILY 07/20/16 07/20/16 Lorazepam 0.5 mg PO DAILY 07/20/16 07/20/16 Polyethylene Glycol 3350 [Miralax] 07/20/16 Prochlorperazine Maleate 10 mg PO TID 07/20/16 07/20/16 [Compazine] - Allergies Allergies/Adverse Reactions: Allergies Allergy/AdvReac Type Severity Reaction Status Date / Time oxycodone Allergy Emesis Verified 07/20/16 21:46 iron dextran complex AdvReac Severe Respiratory Verified 07/20/16 21:46 - Social History Does the pt smoke?: Yes Smoking Status: Light tobacco smoker Does the pt drink ETOH?: No Does the pt have substance abuse?: No - POLST Patient has POLST: Yes PD ED PE NORMAL - Vitals Vital signs reviewed: Yes - General General: Alert and oriented X 3, Well developed/nourished, Other (appears to be anxious and in pain; answers are quiet and slow but appropriate) - HEENT HEENT: PERRL, EOMI, Other (dry mucous membranes) - Neck Neck: Supple, no meningeal sign - Cardiac Cardiac: RRR, No murmur - Respiratory Respiratory: No respiratory distress, Clear bilaterally - Abdomen Abdomen: Soft, Non distended, Other (mild RUQ TTP without rebound or guarding; hepatomegaly) - Derm Derm: Normal color, Warm and dry Results - Vitals Vitals: Vital Signs - 24 hr 07/21/16 07/21/16 07/21/16 11:57 14:34 19:08 Temperature 37.1 C Heart Rate 90 88 69 Respiratory 15 18 15 Rate Blood Pressure 147/72 H 149/73 H 140/71 H O2 Saturation 94 95 93 Oxygen O2 Source Room air - EKG (time done) No standard instances Rate: Rate (enter#) (80) Rhythm: NSR [place]: Normal Intervals: Normal [place] QRS: Normal Ischemia: Normal ST segments - Labs Labs: Laboratory Tests 07/20/16 07/20/16 07/20/16 22:00 22:00 22:00 WBC 2.3 L RBC 4.52 L Hgb 12.8 L Hct 38.0 L MCV 84.0 MCH 28.3 MCHC 33.7 RDW 17.6 H Plt Count 264 MPV 7.9 Neut # Not Reportable Lymph # Not Reportable [place] # Not Reportable Eos # Not Reportable Baso # Not Reportable Absolute Nucleated RBC Not Reportable Total Counted 100 Band Neuts % (Manual) 5 Metamyelocytes % 2 H Myelocytes % 3 H Neutrophils # (Manual) 0.4 L* Lymphocytes # (Manual) 1.3 L Monocytes # (Manual) 0.5 Nucleated RBCs 1 Differential Comment MANUAL DIFFERENTIAL Platelet Estimate NORMAL (130-450,000) RBC Morph Micro Appear NORMAL APPEARANCE PT 13.9 H INR 1.2 APTT 23.6 L Sodium 129 L Potassium 4.6 Chloride 91 L Carbon Dioxide 27 Anion Gap 11.0 BUN 17 Creatinine 0.6 Estimated GFR (MDRD) 137 Glucose 241 H Calcium 9.3 Total Bilirubin 0.3 AST 45 H ALT 42 Alkaline Phosphatase 228 H Total Protein 6.3 L Albumin 2.7 L Globulin 3.6 Albumin/Globulin Ratio 0.8 L Lipase 19 L - Rads (name of study) CT chest Radiology: Prelim report reviewed, See rad report chest xray Radiology: Prelim report reviewed, See rad report PD MEDICAL DECISION MAKING - ED course Complexity details: reviewed old records, reviewed results, re-evaluated patient , considered differential, d/w patient, d/w family ED course: Pain was well controlled with dilaudid 1mg, eventually received a second dose ( this second dose was also with ativan, as he appeared anxious at times). Tests resulted and I discussed results with patient and patient's brother. Patient's brother was adamant about patient needing to be admitted; patient's brother repeatedly, explicitly told me that he would not bring patient home and wanted the patient to be admitted. I explained to the brother that there did not appear to be an indication for admission at this time. Patient's brother wanted to speak with "the head of the hospital". Nursing concreting supervisor was paged and she conversed with patient's brother. I subsequently received a phone call from Dr. Hagan (hem/onc covering for Dr. Curry). Dr. Hagan says that she was paged by the patient's daughter who requested that she (Dr. Hagan) speak with me. I discussed the case with Dr. Hagan. As I did so, Dr. Moulton ([facility] hospitalist) informed me that there was not an appropriate bed for this patient at [facility]. Dr. Hagan suggested I contact the hospitalist at [facility] in [place], as they have an inpatient hospice program. I then d/w Dr. Moscoso (hospitalist at [facility]); she opines patient does not have presentation or results that would indicate or necessitate admission to the hospital under hospitalist service, nor would he qualify for the hospice (in-hospital) program at [facility]. Patient was thus kept in ED overnight for SW consult in AM. Case signed out to Dr. Hernandez at 7 AM, as SW consult was just getting underway at that time. Departure - Departure Disposition: 01 Home, Self Care Clinical Impression: Metastatic cancer, Atypical chest pain Condition: Poor Follow-Up: Jose Angel Curry MD [Physician No Access] - Carlin Moyer MD [Provider Admit Priv/Credential] - Comments: Follow the hospice recommendations as written by Dr Moyer Discharge Date/Time: 07/21/16 19:11
[2016-07-20] MEDS ORDERED: PROMETHAZINE INJ 25 MG in SODIUM CHLORIDE 0.9% 50 ML IV STA (22:11)
[2016-07-20] MEDS ORDERED: SODIUM CHLORIDE 0.9% 1,000 ML IV STA (22:11)
[2016-07-20] MEDS ORDERED: HYDROmorphone 1 MG/ML SYRINGE IVP STA (22:14)
[2016-07-20] MEDS ORDERED: PROMETHAZINE 25 MG/1 ML VIAL ONE (22:16)
[2016-07-20 22:17] LABS: BASOPHILS % (AUTO) 0.1 %; HGB - HEMOGLOBIN 12.8 g/dL (14.0-18.0); UNCORRECTED WHITE BLOOD COUNT 2.3 x10^3/uL; WHITE BLOOD COUNT 2.3 x10^3/uL (4.8-10.8)
[2016-07-20] MEDS ORDERED: HYDROmorphone 1 MG/ML SYRINGE ONE (22:17)
[2016-07-20 22:21] LABS: EOSINOPHILS % (AUTO) 0.3 %; LYMPHOCYTES % (AUTO) 48.4 %; MEAN CORPUSCULAR HEMOGLOBIN 28.3 pg (27.0-31.0); MEAN CORPUSCULAR HGB CONC 33.7 g/dL (32.0-36.0); MEAN PLATELET VOLUME 7.9 fL (7.4-11.4); MONOCYTES % (AUTO) 30.6 %; NEUTROPHILS % (AUTO) 20.6 %; RED BLOOD COUNT 4.52 10^6/uL (4.70-6.10); RED CELL DISTRIBUTION WIDTH 17.6 % (12.0-15.0)
[2016-07-20 22:23] LABS: INR 1.2 (0.8-1.2); PT - PROTHROMBIN TIME 13.9 secs (9.9-12.6)
[2016-07-20 22:25] LABS: ALBUMIN/GLOBULIN RATIO 0.8 (1.0-2.2); BILIRUBIN,TOTAL 0.3 mg/dL (0.2-1.0); CALCIUM 9.3 mg/dL (8.5-10.3); CREATININE 0.6 mg/dL (0.6-1.2); POTASSIUM 4.6 mmol/L (3.5-5.0); TOTAL PROTEIN 6.3 g/dL (6.7-8.2)
[2016-07-20 22:32] LABS: PARTIAL THROMBOPLASTIN TIME 23.6 secs (24.9-33.3)
[2016-07-20 22:46] LABS: BAND NEUTROPHILS % (MANUAL) 5 %; LYMPHOCYTES % (MANUAL) 55 %; NEUTROPHILS % (MANUAL) 14 %; TOTAL CELLS COUNTED 100
[2016-07-20 22:47] LABS: NP AUTO DIFFERENTIAL? YES; NP MAN DIFFERENTIAL? NO; PLATELET ESTIMATE, MANUAL NORMAL (130-450,000) (NORMAL)
[2016-07-21] MEDS ORDERED: HYDROmorphone 1 MG/ML SYRINGE IVP STA ×4 (00:11→17:30)
[2016-07-21] MEDS ORDERED: LORazepam 2 MG/ML SYRINGE IVP STA (00:11)
[2016-07-21] MEDS ORDERED: LORazepam 2 MG/ML SYRINGE ONE (00:12)
[2016-07-21] MEDS ORDERED: HYDROmorphone 1 MG/ML SYRINGE ONE ×3 (00:12→17:34)
[2016-07-21] MEDS ORDERED: IOPAMIDOL-300 100 ML VIAL IVP ONE (00:22)
--- NOTE | 2016-07-21 00:43 | XRAY Preliminary Report ---
Exam: XR Chest 2 View PA/LAT IMPRESSION: No acute pulmonary process. [facility] SITE ID: [id number]
--- NOTE | 2016-07-21 01:02 | CT Preliminary Report ---
Exam: CT Chest Angio (PE) IMPRESSION: 1. No pulmonary emboli. 2. No acute pulmonary process. No pneumothorax or effusions. 3. Extensive coronary artery disease. No pathologic mediastinal or hilar adenopathy. 4. Extensive liver metastases. Extensive bulky upper abdominal adenopathy consistent with metastatic disease. [facility] SITE ID: [id number]
[2016-07-21] MEDS ORDERED: MORPHINE 2 MG/ML SYRINGE ONE (06:45)
[2016-07-21] MEDS ORDERED: ONDANSETRON 4 MG/2 ML VIAL ONE (06:45)
--- NOTE | 2016-07-21 07:23 | ED Physician Documentation ---
History of Present Illness - Stated complaint Stated Complaint: CP/SOA - Chief complaint Chief Complaint: Cardiac PD PAST MEDICAL HISTORY - Past Medical History Past Medical History: Yes Cardiovascular: Hypertension Respiratory: None Neuro: None Endocrine/Autoimmune: Type 2 diabetes GI: GERD : None HEENT: None Psych: Anxiety, Obsessive compulsive disorder Musculoskeletal: Osteoarthritis Derm: None Other Past Medical History: Colon CA with Mets - Past Surgical History Past Surgical History: Yes General: Appendectomy, Bowel surgery HEENT: Tonsil/Adenoidectomy - Present Medications Home Medications: Ambulatory Orders Medication Instructions Recorded Confirmed Insulin Glargine [Lantus] 75 units SQ DAILY 01/22/14 07/17/16 Fenofibrate [Lofibra] 160 mg PO DAILY 01/23/14 07/20/16 Lisinopril [Zestril] 30 mg PO DAILY 01/23/14 07/20/16 Diclofenac Sodium [Voltaren] 2 gm TP Q6HR PRN #1 gel..gram. 04/02/16 07/17/16 Sennosides [Senna] 2 tab PO BID 05/24/16 07/17/16 Diphenoxylate HCl/Atropine 1 tab PO Q6H PRN 05/27/16 07/17/16 [Diphenoxylate-Atrop 2.5-0.025] Ondansetron Odt [Zofran Odt] 4 mg TL Q8H PRN #30 tablet 05/27/16 07/17/16 Propranolol HCl 20 mg PO BID 05/27/16 07/20/16 Insulin Regular, Human [Humulin R] 10 unit SQ TID 05/29/16 07/17/16 Zolpidem [Ambien] 2 tab PO HS PRN 06/05/16 07/20/16 Morphine Sulfate [Ms Contin] 30 mg PO BID 06/07/16 07/20/16 Ondansetron [Ondansetron Odt] 8 mg PO Q8H PRN 06/07/16 07/20/16 Omeprazole [PriLOSEC] 20 mg PO BID 06/12/16 07/20/16 Morphine Ir [Ms Ir] 15 mg PO Q6H PRN 06/23/16 07/20/16 Tamsulosin [Flomax] 0.4 mg PO DAILY 07/04/16 07/17/16 Dexamethasone [Decadron] 4 mg PO DAILY 07/20/16 07/20/16 Lorazepam 0.5 mg PO DAILY 07/20/16 07/20/16 Polyethylene Glycol 3350 [Miralax] 07/20/16 Prochlorperazine Maleate 10 mg PO TID 07/20/16 07/20/16 [Compazine] - Allergies Allergies/Adverse Reactions: Allergies Allergy/AdvReac Type Severity Reaction Status Date / Time oxycodone Allergy Emesis Verified 07/20/16 21:46 iron dextran complex AdvReac Severe Respiratory Verified 07/20/16 21:46 - Social History Does the pt smoke?: Yes Smoking Status: Light tobacco smoker Does the pt drink ETOH?: No Does the pt have substance abuse?: No - POLST Patient has POLST: Yes Results - Vitals Vitals: Vital Signs - 24 hr 07/20/16 07/20/16 07/20/16 21:38 22:12 22:19 Temperature 37.1 C Heart Rate 78 74 Respiratory 15 20 Rate Blood Pressure 152/69 H 152/66 H Blood Pressure 140/71 H [Left] Blood Pressure 152/69 H [Right] O2 Saturation 96 95 07/20/16 07/21/16 07/21/16 23:36 00:15 00:54 Temperature Heart Rate 100 75 93 Respiratory 20 24 16 Rate Blood Pressure 152/75 H 162/101 H 114/67 Blood Pressure [Left] Blood Pressure [Right] O2 Saturation 98 96 95 07/21/16 07/21/16 07/21/16 02:09 03:27 04:34 Temperature Heart Rate 93 105 H 111 H Respiratory 16 14 14 Rate Blood Pressure 124/73 140/69 H 122/73 Blood Pressure [Left] Blood Pressure [Right] O2 Saturation 97 95 94 07/21/16 07/21/16 07/21/16 05:22 06:29 07:30 Temperature 36.9 C Heart Rate 115 H 107 H 106 H Respiratory 16 20 22 Rate Blood Pressure 122/74 116/69 142/67 H Blood Pressure [Left] Blood Pressure [Right] O2 Saturation 94 94 93 07/21/16 07/21/16 07/21/16 08:20 11:57 14:34 Temperature Heart Rate 95 90 88 Respiratory 14 15 18 Rate Blood Pressure 134/79 H 147/72 H 149/73 H Blood Pressure [Left] Blood Pressure [Right] O2 Saturation 95 94 95 Oxygen O2 Source Room air - Labs Labs: Laboratory Tests 07/20/16 07/20/16 07/20/16 22:00 22:00 22:00 WBC 2.3 L RBC 4.52 L Hgb 12.8 L Hct 38.0 L MCV 84.0 MCH 28.3 MCHC 33.7 RDW 17.6 H Plt Count 264 MPV 7.9 Neut # Not Reportable Lymph # Not Reportable [place] # Not Reportable Eos # Not Reportable Baso # Not Reportable Absolute Nucleated RBC Not Reportable Total Counted 100 Band Neuts % (Manual) 5 Metamyelocytes % 2 H Myelocytes % 3 H Neutrophils # (Manual) 0.4 L* Lymphocytes # (Manual) 1.3 L Monocytes # (Manual) 0.5 Nucleated RBCs 1 Differential Comment MANUAL DIFFERENTIAL Platelet Estimate NORMAL (130-450,000) RBC Morph Micro Appear NORMAL APPEARANCE PT 13.9 H INR 1.2 APTT 23.6 L Sodium 129 L Potassium 4.6 Chloride 91 L Carbon Dioxide 27 Anion Gap 11.0 BUN 17 Creatinine 0.6 Estimated GFR (MDRD) 137 Glucose 241 H Calcium 9.3 Total Bilirubin 0.3 AST 45 H ALT 42 Alkaline Phosphatase 228 H Total Protein 6.3 L Albumin 2.7 L Globulin 3.6 Albumin/Globulin Ratio 0.8 L Lipase 19 L PD MEDICAL DECISION MAKING - ED course ED course: assumed care 7 AM 61 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 per heme-onc note dated 07/17 pt is transitioning to hospice and is getting palliative care - unfortunately it does not appear a POLST has been completed yet seen last night by Dr Hernandez for CP - EKG and trop were neg Dr Hernandez did not feel admit for serial trop echo stress etc was appropriate given terminal cancer status, CTPA neg for PE or other acute process pain was relieved with dilaudid family did not feel comfortable taking pt home due to his pain and dyspnea no beds at [facility] last night Dr Hernandez spoke with onc and per their recommendation spoke to Prov about transferring for inpt hospice but was advised that since pt is not imminently terminal this was not possible so turned over to me this AM pending SW consult and I will also ask oncology staff to consult on pt I went to see the pt at [facility] - e is drosy but able to converse - I updated him on the resulkts of the testing done last night by Dr Hernandez and asked him if he understood what hospice is and he states yes and that he would like to go home on hospice needs more pain meds which were ordered RRR lungs grossly CTAB pt seen by hospice Dr Moyer who completed POLST (DNR comfort) which i gave to [facility] to be scanned he met with family pt is able to be placed at [facility] for comfort care waiting in ER for when [facility] is ready to accept/intake pt is very weak, more so after narcotics in the ER, do not feel he can safely transfer or ambulate or sit unsupervised - will transfer by S Departure - Departure Disposition: 01 Home, Self Care Clinical Impression: Metastatic cancer, Atypical chest pain Condition: Poor Follow-Up: Jose Angel Curry MD [Physician No Access] - Carlin Moyer MD [Provider Admit Priv/Credential] - Comments: Follow the hospice recommendations as written by Dr Moyer
[2016-07-21] MEDS ORDERED: ONDANSETRON 4 MG/2 ML VIAL IVP STA (07:39)
[2016-07-21] MEDS ORDERED: PHENAZOPYRIDINE 100 MG TABLET PO STA (10:51)
[2016-07-21] MEDS ORDERED: PHENAZOPYRIDINE 100 MG TABLET PO ONE (10:53)
--- NOTE | 2016-07-21 12:23 | XRAY Report ---
EXAM: CHEST RADIOGRAPHY EXAM DATE: 07/21/2016 12:25 AM. CLINICAL HISTORY: Chest pain. COMPARISON: 05/26/2016. TECHNIQUE: 2 views. FINDINGS: Lungs/Pleura: No focal opacities evident. No pleural effusion. No pneumothorax. Decreased lung volume s. Mediastinum: Heart and mediastinal contours are unremarkable. Other: Left-sided port terminates in the mid SVC. IMPRESSION: No acute pulmonary process. [facility] Referring Provider Line: [phone] SITE ID: [id number]
--- NOTE | 2016-07-21 12:30 | CT Report ---
EXAM: CT ANGIOGRAM CHEST EXAM DATE: 07/21/2016 12:26 AM. CLINICAL HISTORY: Chest pain, dyspnea. Colon cancer with metastatic disease. COMPARISON: 05/26/2016. TECHNIQUE: Routine helical imaging was performed through the chest in the pulmonary arterial phase. I V Contrast: 100 mL Isovue-300. Reconstructions: Coronal 3D MIP reconstructions.Sagittal and coronal. In accordance with CT protocol optimization, one or more of the following dose reduction techniques w ere utilized for this exam: automated exposure control, adjustment of mA and/or KV based on patient s ize, or use of iterative reconstructive technique. FINDINGS: Pulmonary Arteries: Diagnostic quality: Adequate through the segmental arteries. No evidence for acute or chronic pulmona ry emboli. RV/LV is within normal limits. There is no interventricular septal bowing. There is no reflux of cont rast material in the IVC. Lungs/Pleura: No consolidation, nodules, or edema. No effusions or pneumothorax. Mediastinum: No cardiac enlargement. Extensive coronary artery calcifications are present in the left anterior descending coronary artery distribution. No pericardial effusion or pathologic mediastinal or hilar adenopathy. Thoracic Aorta: Extensive atheromatous calcified and noncalcified plaques are present throughout the thoracic aorta particularly at the thoracic arch best seen on image 3,46. Upper Abdomen: Large confluent liver masses are seen in both liver lobes consistent with metastatic d isease. Extensive peripancreatic, periaortic and portal hepatic adenopathy. Small hiatal hernia. Other: No apparent nodule or mass. No supraclavicular or axillary adenopathy. The visualized chest velazquez bcutaneous tissues are grossly unremarkable. IMPRESSION: 1. No pulmonary emboli. 2. No acute pulmonary process. No pneumothorax or effusions. 3. Extensive coronary artery disease. No pathologic mediastinal or hilar adenopathy. 4. Extensive liver metastases. Extensive bulky upper abdominal adenopathy consistent with metastatic disease. [facility] Referring Provider Line: [phone] SITE ID: [id number]
[2016-07-21 19:11] VITALS: BP 140/71
== END 2016-07-21 19:11 | disposition home or self-care (01) ==
LOC: EDUNIT# → ED 21:37
DX: C80.1 Malignant (primary) neoplasm, unspecified (principal); C78.7 Secondary malignant neoplasm of liver and intrahepatic bile duct; C18.9 Malignant neoplasm of colon, unspecified; R07.89 Other chest pain; I25.10 Atherosclerotic heart disease of native coronary artery without angina pectoris; I10 Essential (primary) hypertension; E11.9 Type 2 diabetes mellitus without complications; Z79.4 Long term (current) use of insulin; K21.9 Gastro-esophageal reflux disease without esophagitis; M19.90 Unspecified osteoarthritis, unspecified site; F17.200 Nicotine dependence, unspecified, uncomplicated
CPT/HCPCS: 36415; 51702; 51798; 71020; 71275; 80053; 83690; 85025; 85610; 85730; 93005; 93010; 96361; 96365; 96375; 96376; 99284; 99285; A9270; J1170; J2060; Q9967

== ENCOUNTER 2016-07-21 19:21 | Outpatient (CLI) | payer MEDICAID | END 2016-07-21 19:22 | disposition hospice, inpatient (51) | LOC: EMS 19:21 | PROVIDERS: ATTEND Surgery | DX: C78.7 Secondary malignant neoplasm of liver and intrahepatic bile duct (principal) | CPT/HCPCS: A0425; A0428 ==